=== PATIENT | female | born 1990 | race Native Hawaiian/Other Pacific Islander ===

== ENCOUNTER 2019-01-19 18:53 | Emergency (ER) | payer SELFPAY ==
[2019-01-19 19:28] VITALS: BP 109/79
--- NOTE | 2019-01-19 19:37 | ED PDOC ---
HPI: CCC, URI, Sore Throat Time Seen by Provider: 01/19/19 19:32 Chief Complaint (Nursing): ENT Problem Chief Complaint (Provider): ENT Problem History Per: Patient History/Exam Limitations: no limitations Onset/Duration Of Symptoms: Days (x1) Current Symptoms Are (Timing): Still Present Additional Complaint(s): 28 y/o female presents to the ED for evaluation of a fever associated with a sore throat, non-productive cough and left ear pain, onset one day ago. Of note, patient is 7 months and is . Patient reports of last taking Tylenol at 11:40 AM this morning. PMD: No provider Past Medical History Reviewed: Historical Data, Nursing Documentation, Vital Signs Vital Signs: Last Vital Signs Temp 101.5 F H 01/19/19 19:26 Pulse 109 H 01/19/19 19:26 Resp 20 01/19/19 19:26 BP 109/79 01/19/19 19:26 Pulse Ox 99 01/19/19 19:26 - Medical History PMH: No Chronic Diseases - Surgical History Surgical History: No Surg Hx - Family History Family History: States: Unknown Family Hx - Living Arrangements Living Arrangements: With Family - Home Medications Home Medications: Ambulatory Orders Medication Instructions Recorded Acetaminophen [Acetaminophen Extra 2 tab PO Q6 PRN #24 tablet 01/19/19 Strength] Ibuprofen [Motrin] 600 mg PO Q8 PRN #21 tab 01/19/19 Oseltamivir Phosphate [Tamiflu] 75 mg PO BID #9 capsule 01/19/19 - Allergies Allergies/Adverse Reactions: Allergies Allergy/AdvReac Type Severity Reaction Status Date / Time No Known Allergies Allergy Verified 01/19/19 19:26 Review of Systems ROS Statement: Except As Marked, All Systems Reviewed And Found Negative Constitutional: Positive for: Fever ENT: Positive for: Ear Pain, Throat Pain Respiratory: Positive for: Cough Physical Exam - Reviewed Nursing Documentation Reviewed: Yes Vital Signs Reviewed: Yes - Physical Exam Appears: Positive for: No Acute Distress Head Exam: Positive for: ATRAUMATIC Skin: Positive for: Normal Color, Warm, Dry Eye Exam: Positive for: Normal appearance, EOMI, PERRL ENT: Positive for: TM Is/Are (Left TM: Decreased cone of light noted with no erythema. ). Negative for: Pharyngeal Erythema, Tonsillar Exudate, Tonsillar Swelling Neck: Positive for: Normal Cardiovascular/Chest: Negative for: Bradycardia, Tachycardia Respiratory: Positive for: Normal Breath Sounds. Negative for: Respiratory Distress Neurological/Psych: Positive for: Awake, Alert, Oriented (x3). Negative for: Motor/Sensory Deficits - ECG O2 Sat by Pulse Oximetry: 99 (RA) Pulse Ox Interpretation: Normal - Progress ED Course And Treament: influenza a/b neg rapid strep neg Medical Decision Making Medical Decision Making: Time: 1932 Impression: Fever Plan: -- Tylenol 975 mg PO -- Influenza A B -- Rapid Strep Group A Antigen Scribe Attestation: Documented by Brodie Quintanilla, acting as a scribe Juvenal Frazier PA-C. Provider Scribe Attestation: All medical record entries made by the Scribe were at my direction and personally dictated by me. I have reviewed the chart and agree that the record accurately reflects my personal performance of the history, physical exam, medical decision making, and the department course for this patient. I have also personally directed, reviewed, and agree with the discharge instructions and disposition. Disposition - Clinical Impression Clinical Impression: Flu-like symptoms - Patient ED Disposition Is Patient to be Admitted: No - Disposition Disposition: Routine/Home Disposition Time: 20:36 Condition: FAIR Prescriptions: Acetaminophen [Acetaminophen Extra Strength] 2 tab PO Q6 PRN #24 tablet PRN Reason: Fever >100.4 F Ibuprofen [Motrin] 600 mg PO Q8 PRN #21 tab PRN Reason: Fever >100.4 F Oseltamivir Phosphate [Tamiflu] 75 mg PO BID #9 capsule Instructions: Flu, Adult (DC) Forms: [facility] ED School/Work Excuse
[2019-01-19 20:57] VITALS: PULSE 100; RESP 18; TEMP 98.4; O2SAT 98
== END 2019-01-19 20:59 | disposition home or self-care (01) ==
LOC: H.ER 18:53
DX: J11.1 Influenza due to unidentified influenza virus with other respiratory manifestations (principal)